=== PATIENT | female | born 2000 | race Caucasian/White ===

== ENCOUNTER 2021-06-01 08:53 | Emergency (ER) | payer BC, MEDICAID, SELFPAY ==
[2021-06-01 09:05] VITALS: BMI 37.0
[2021-06-01 09:08] VITALS: BP 159/80; PULSE 93; RESP 16; TEMP 36.8; O2SAT 98
--- NOTE | 2021-06-01 09:25 | ED_ITS ---
HPI - Female Genitourinary General: Chief complaint: Urogenital-Female Stated complaint: burning with urination Time Seen by Provider: 06/01/21 09:12 History of Present Illness: Patient states he has had some intermittent vaginal discharge last few days. Said he has a fishy smell to it she does have some itching. Has had a history of trichomoniasis and chlamydia. Has slept with the same gentleman again who she had caught up from the first time. Does not think she is . Denies any other problems. Associated symptoms: Reports vaginal discharge; Deny abdominal pain, headache(s) or nausea Review of Systems Const: Denies: fever(s), chills or body aches Eyes: Denies: eye discomfort ENMT: Denies: throat pain Card: Denies: chest pain Resp: Denies: dyspnea GI: Denies: abdominal pain, nausea or vomiting : Reports: dysuria, genital pruritis, vaginal odor and vaginal discharge; Denies: vaginal bleeding Skin/Breast: Denies: rash Neuro: Denies: headache(s) Psych: Denies: depression or suicidal ideation Physical Exam Const: COMMON NORMALS: no acute distress, patient oriented x3 and alert HENMT: COMMON NORMALS: normocephalic and external ears normal HEAD & SCALP: normocephalic EXTERNAL EAR: Yes external ears normal Eye: COMMON NORMALS: EOMs intact bilaterally Neck/C-Spine: COMMON NORMALS: no JVD Resp: COMMON NORMALS: normal respiratory effort and No use of accessory muscles Cardio: COMMON NORMALS: no JVD GI: INSPECTION: Yes normal to inspection : SPECULUM EXAM - CERVIX: Yes Cervical os closed, No Cervical bleeding and Yes mucoid cervix BIMANUAL EXAM - ADNEXA, OTHER: Yes normal adnexae and Yes Other (No cervical motion tenderness) Extremity: COMMON NORMALS: normal to inspection and full ROM Neuro: COMMON NORMALS: patient oriented x3 SENSORIUM/ORIENTATION: Yes alert Psych: COMMON NORMALS: mental status grossly normal Skin: COMMON NORMALS: no rashes or lesions noted GENERAL SKIN EXAM: no rashes or lesions noted Course Vital Signs: Vital signs: Vital Signs Temperature 98.3 F 06/01/21 09:08 Pulse Rate 93 06/01/21 09:08 Respiratory Rate 16 06/01/21 09:08 Blood Pressure 159/80 06/01/21 09:08 Pulse Oximetry 98 06/01/21 09:08 MDM - Female Medical Decision Making Bacterial vaginosis. Lab Data Laboratory Results HCG, Qual Negative (Negative) 06/01/21 09:55 Urine Color Straw (Yellow) 06/01/21 09:55 Urine Appearance Clear (CLEAR) 06/01/21 09:55 Urine pH 7 (5-7) 06/01/21 09:55 Ur Specific Stamps 1.005 (1.005-1.030) 06/01/21 09:55 Urine Protein Neg (Negative) 06/01/21 09:55 Urine Glucose (UA) Norm (Normal) 06/01/21 09:55 Urine Ketones Negative (Negative) 06/01/21 09:55 Urine Blood Neg (Negative) 06/01/21 09:55 Urine Nitrate Negative (Negative) 06/01/21 09:55 Urine Bilirubin Neg (Negative) 06/01/21 09:55 Urine Urobilinogen Norm mg/dL (Negative) 06/01/21 09:55 Ur Leukocyte Esterase Trace (Negative) H 06/01/21 09:55 Urine RBC 0-4 /hpf (0-2) H 06/01/21 09:55 Urine WBC None /hpf (0-5) 06/01/21 09:55 Ur Squamous Epith Cells 0-4 /hpf (0-5) H 06/01/21 09:55 Amorphous Sediment Not Reportable 06/01/21 09:55 Urine Bacteria Trace /hpf (NONE) 06/01/21 09:55 Discharge Plan Discharge Patient Disposition: Home Clinical Impression: Bacterial vaginosis Condition: Stable Prescriptions: New azithromycin 1 gram packet 1 g PO DAILY Qty: 1 0RF metronidazole 500 mg tablet 500 mg PO BID 7 Days Qty: 14 0RF Discharge Orders: Discharge ED (Routine); Ordered 06/01/21 Ordered By: Des Flores Discharge Diet: Usual diet Discharge Activity: Resume usual activity Patient Instructions: Bacterial Vaginosis (ED) Activity Restrictions/Additional Instructions: Follow-up with medical provider as directed. Take medications as prescribed. Return to the ER or your medical provider if condition worsens. Please read and understand discharge instructions. If any questions ask please. If you do not receive a lab results from the hospital within 48 hours please call and get your results. Coding Level of Care Code ED [employer] [facility] [employer] for [facility]kins
[2021-06-01 10:19] LABS: HCG Qualitative Urine. Negative (Negative)
[2021-06-01 10:21] LABS: Add Urine Microscopic? YES; Bilirubin Urine Neg (Negative); Blood Urine Neg (Negative); Glucose Urine UA Norm (Normal); Ketones Urine Negative (Negative); Leukocyte Esterase Urine Trace (Negative); Nitrate Urine Negative (Negative); Protein Urine Neg (Negative); Specific Gravity, Urine 1.005 (1.005-1.030); Urine Appearance Clear (CLEAR); Urine Color Straw (Yellow); Urobilinogen Urine Norm (Negative); pH Urine 7 (5-7)
[2021-06-01 10:31] LABS: Add Urine Culture? No; Bacteria Urine TRACE /hpf; RBC Urine 0-4 /hpf (0-2); Squamous Epithelial Cell Urine 0-4 /hpf (0-5)
== END 2021-06-01 10:48 | disposition home or self-care (01) ==
PROVIDERS: Emergency Provider Nurse Practitioner Family
DX: N76.0 Acute vaginitis (principal)
CPT/HCPCS: 81001; 81025; 87210; 87491; 87512; 87591; 87799; 99283; E0352